=== PATIENT | female | born 1995 | race African-American/Black ===

== ENCOUNTER 2018-11-20 14:27 | Emergency (ER) | payer BC ==
--- NOTE | 2018-11-20 15:50 | RAD ---
FOUR VIEWS LEFT KNEE: HISTORY: Fall. Pain. FINDINGS: A small suprapatellar effusion. Joint spaces are preserved. No fracture or malalignment. IMPRESSION: Small suprapatellar effusion, without evidence of fracture. If there is concern for internal derange ment, nonemergent MRI. POS: [facility]
== END 2018-11-20 15:52 | disposition home or self-care (01) ==
LOC: ERS 14:27
DX: S50.312A Abrasion of left elbow, initial encounter (principal); M25.562 Pain in left knee; V00.131A Fall from skateboard, initial encounter